=== PATIENT | male | born 1965 | race Caucasian/White ===

== ENCOUNTER 2024-02-26 17:29 | Emergency (ER) | payer OTHER, SELFPAY ==
--- NOTE | 2024-02-26 17:30 | ED_ITS ---
HPI - General Adult General Chief complaint: Ear Stated complaint: ear issues Time Seen by Provider: 02/26/24 17:40 Source: patient, RN notes reviewed and old records reviewed Mode of arrival: ambulatory Limitations: no limitations History of Present Illness HPI narrative: 58-year-old male presents to the [facility] with complaints left ear pain with preauricular swelling since last night. Patient reports that he had flu-like symptoms that started 1 week ago on Tuesday. They continued through Tuesday, is been taking rjaw-uso-suldcnd cold medication. Reports was symptoms have improved. Patient states that he blew his nose last night and started with some sharp pain in the left ear. Related Data Allergies Allergy/AdvReac Type Severity Reaction Status Date / Time No Known Allergies Allergy Verified 02/26/24 17:35 Review of Systems Review of Systems: All systems reviewed & are unremarkable except as noted in HPI and below Constitutional: Constitutional: Reports no additional constitutional complaints ENT: Reports as per HPI and Reports otalgia Cardiovascular: Cardiovascular: Reports no additional cardiovascular complain ts, Denies chest pain and Denies dyspnea Respiratory: Respiratory: Reports no additional respiratory complaints, Denies chest congestion, Denies cough and Denies dyspnea Musculoskeletal: Musculoskeletal: Reports no additional musculoskeletal complaints Integumentary/Breasts: Skin/Breast: Reports system reviewed and no additional complaints, except as docu PMFSH Comments At the time of my signature, I reviewed and agree with the nursing past medical, surgical, social, and family history. There is no relevant family history pertinent to the patient complaint. Exam Const: General: cooperative, healthy appearing, comfortable, no acute distress, well developed, alert and well nourished Nutritional Appearance: well nourished Orientation/consciousness: patient oriented x3 Limitations: no limitations HENMT: Head: normal to inspection Ears: external ears normal, EAC's normal, mastoids normal, periauricular adenopathy on the left and TM abnormal bulging on the left and erythematous on the left Face/Nose/Sinus: Normal external nose present, Normal nares present, Normal nasal mucous membranes and turbinates present and No nasal discharge present Face and sinus: normal facial exam, sinuses nontender and face symmetric Mouth: Yes Normal oral and palatal mucosa present, Yes lip normal, Yes tongue normal and Yes moist mucous membranes Throat: posterior oropharynx normal, tonsils normal, uvula midline and no uvular edema Eyes: General: appearance normal, both eyes and all related structures Alignment and Position: alignment normal Neck: Neck: normal visual inspection, full ROM, no lymphadenopathy and no meningeal signs Chest: Chest palpation & inspection: normal inspection of the chest Resp: Effort & Inspection: normal respiratory effort and able to speak in complete sentences Auscultation: clear to auscultation bilaterally, no crackles, no rales, no rhonchi and no wheezes Cardio: Rate: regular rate Skin: General skin exam: normal color and no rashes or lesions noted Neuro: General: patient oriented x3, gait normal, moves all extremities and no meningeal signs Cognition (Neuro): normal cognition Speech: normal speech Gait exam (Neuro): Normal gait present Extrem: General: normal to inspection, full ROM, capillary refill normal and normal gait Psych: Appearance: grossly normal and well kempt Mental Status: mental status grossly normal Speech and movement: Normal speech and movement present and Clear speech present Affect: normal affect Attitude: cooperative Course Course Level of Care: Express Care Visit Vital Signs Vital signs: Vital Signs Temperature 97.9 F 02/26/24 17:37 Pulse Rate 81 02/26/24 17:37 Respiratory Rate 16 02/26/24 17:37 Blood Pressure 173/86 H 02/26/24 17:37 Pulse Oximetry 98 02/26/24 17:37 Oxygen Delivery Room Air 02/26/24 17:37 Temperature 97.9 F 02/26/24 17:37 Pulse Rate 81 02/26/24 17:37 Respiratory Rate 16 02/26/24 17:37 Blood Pressure 173/86 H 02/26/24 17:37 Pulse Oximetry 98 02/26/24 17:37 Oxygen Delivery Room Air 02/26/24 17:37 Reviewed Medical Decision Making MDM Narrative Medical decision making narrative: Patient sitting comfortably in exam room. Nontoxic, vitals stable. Patient in no acute distress Patient presents for for left ear pain since yesterday. History of upper respiratory symptoms, improved a couple of days ago. Has been taken offn-pda-kbvaoys products. Patient appropriate for outpatient treatment for otitis media with an antibiotic and close follow-up. Discharge instructions reviewed with patient, as well as provided in writing per nursing staff. The instructions also include specific and strict return/GO TO THE ER as well as f/u information. All questions have been answered, and the patient deny any further questions with discharge and discharge plan. Some parts of this dictation were generated by voice recognition software and may contain typographical and/or grammatical inaccuracies. Differential Diagnosis Differential Diagnosis: URI, otitis media, serous otitis Medical Records Medical records reviewed: Yes I reviewed the external patient's medical records. Vital Signs Vital Signs: Vital Signs Temperature 97.9 F 02/26/24 17:37 Pulse Rate 81 02/26/24 17:37 Respiratory Rate 16 02/26/24 17:37 Blood Pressure 173/86 H 02/26/24 17:37 Pulse Oximetry 98 02/26/24 17:37 Oxygen Delivery Room Air 02/26/24 17:37 Temperature 97.9 F 02/26/24 17:37 Pulse Rate 81 02/26/24 17:37 Respiratory Rate 16 02/26/24 17:37 Blood Pressure 173/86 H 02/26/24 17:37 Pulse Oximetry 98 02/26/24 17:37 Oxygen Delivery Room Air 02/26/24 17:37 Reviewed Lab Data Lab results reviewed: Yes I reviewed the patient's lab results. Labs: Reviewed Critical Care Time Critical Care Time Critical Care Time: No Discharge Plan Discharge Clinical Impression: Acute infection of left ear Patient Disposition: Home, Self-Care Condition: Stable Instructions: Antibiotic Form, Ear Infection (GEN) Additional Instructions: Continue to take Motrin and Tylenol as needed for pain. Apply warm compresses to help with swelling and discomfort. Take antibiotic as prescribed for the ear infection Today your blood pressure was 173/86. It is extremely important that you follow-up with primary care provider within the next 2 weeks to have this rechecked. Untreated or undertreated blood pressure issues can lead to more serious health issues such as but not limited to heart attack, stroke, kidney failure, erectile dysfunction For new or worsening symptoms go directly to the emergency room Patient Language: Faroese Prescriptions: New amoxicillin 875 mg tablet 875 mg PO Q12H Qty: 20 0RF Follow-up/Referrals: UNKNOWN,DOCTOR [Non-Staff] - Stand Alone Forms: Work/School Release IP Time of Disposition: 17:47
[2024-02-26 17:37] VITALS: BP 173/86; PULSE 81; RESP 16; TEMP 36.6; O2SAT 98
--- OUTSIDE RECORDS SUMMARY | 2024-03-04 08:01 | XMS_ITS | Clinical Summary ---
Author Organization [facility] Address [address] [place] [address] Care Team Providers Care Fish Dressing Machine Feeder Name Role Phone Canelo Cuellar MD Primary Care Provi joe Source Comments [facility] [employer],non-owned Affiliates and Associated Physician Practices is amultiple site organization consisting of ambulatory clinics and hospital sitesin [place], [place], [place] and [place]. This disclosure is being madepursuant to the Care Everywhere program and may not contain all information available regarding this patient. Last updated 17.[facility] [employer] Allergies No known active allergies Medications Be aware that medications may not be up to date on this document. Always verify current medications with the patient. No known medications Social History Tobacco Use Types Packs/Day Years Used Date Smoking Tobacco: Never Assessed Sex and Gender Information Value Date Recorded Sex Assigned at Not on file Gender Identity Not on file Sexual Orientation Not on file Last Filed Vital Signs Vital Sign Reading Time Taken Comments Blood Pressure 142/90 11/28/2016 10:23 AM CDT Pulse 77 11/28/2016 10:23 AM CDT Temperature 37 ??C (98.6 ??F) 11/28/2016 10:23 AM CDT Respiratory Rate 12 11/16/2013 9:54 AM CDT Oxygen Saturation 97% 11/28/2016 10:23 AM CDT Inhaled Oxygen Concentration - - Weight 88 kg (194 lb) 11/28/2016 10:23 AM CDT Height 172.7 cm (5' 8 ) 11/28/2016 10:23 AM CDT Body Mass Index 29.5 11/28/2016 10:23 AM CDT Plan of Treatment Health Maintenance Due Date Last Done Comments ALFREDA (AGES 45-75) - COL ON CA SCREENING 1965 COLON MONITORING 1964 COLONOSCOPY - COLON CA SCREENING 1964 CT COLONOGRAPHY - COLON CA SCREENING 1964 Colorectal Cancer Screening 1964 FIT - COLON CA SCREENING 1964 FLEX SIG - COLON CA SCREENING 1964 LIPID TESTING 1964 HIV SCREENING 10/30/1979 HEPATITIS C SCREENING 10/25/1982 DTAP/TDAP/TD VACCINES (1 - Tdap) 10/30/1983 HEPATITIS B VACCINE (1 of 3 - 19+ 3-dose series) 10/30/1983 ZOSTER VACCINE (1 of 2) 2014 SCREENING FOR DIABETES 11/28/2016 DEPRESSION SCREENING 02/21/2023 COVID-19 VACCINE (1 - 2023-2 5 season) 2023 INFLUENZA VACCINE (#1) 2023 HIB VACCINE Aged Out No longer eligi ble based on patient's age to complete this topic HPV VACCINE Aged Out No longer eligi ble based on patient's age to complete this topic MENINGOCOCCAL VACCINE Aged Out No asya yulisa eligible based on patient's age to complete this topic PNEUMOCOCCAL VACCINE Aged Out No long er eligible based on patient's age to complete this topic Care Teams Fish Dressing Machine Feeder Relationship Specialty Start Date End Date Canelo Cuellar MD PCP - General Internal Medicine 11/28/16
--- OUTSIDE RECORDS SUMMARY | 2024-03-04 08:01 | XMS_ITS | Patient Health Summary ---
Author Organization [facility] Address [address] [place] [address] Care Team Providers Care Project Control Manager Name Role Phone Canelo Cuellar MD Primary Care Provi joe Note from [facility],non-owned Affiliates and Associated Physician Practices is amultiple site organization consisting of ambulatory clinics and hospital sitesin [place], [place], [place] and [place]. This disclosure is being madepursuant to the Care Everywhere program and may not contain all information available regarding this patient. Last updated 17.[facility] Allergies No known active allergies Medications Be [...] Mass Index 29.5 11/28/2016 10:23 AM CDT Procedures * PATHOLOGY/GENETICS HISTORICAL-ONBASE(Performed 11/02/2012) Results * PATHOLOGY/GENETICS HISTORICAL-ONBASE (11/02/2012) 11/02/2012 Narrative [facility] - 11/21/2012 9:39 AM CDT Historical Provider LAB - CHEMISTRY O RDERABLES [facility] [address] Care Teams Project Control Manager Relationship Specialty Start Date End Date Canelo Cuellar MD PCP - General Internal Medicine 11/28/16
--- OUTSIDE RECORDS SUMMARY | 2024-03-04 08:01 | XMS_ITS | Encounter Summary ---
Author Organization [facility] Address [address] [place] [address] Care Team Providers Care Police Captain Name Role Phone Canelo Cuellar MD Primary Care Provi joe Encounter Details Date Type Department Care Team (Late st Contact Info) Description 10/17/2012 Hospital Outpatient Visit Historic [facility] [address] [place] [phone] Prashant Bolaños MD [address] [place] [id number] Social History Tobacco Use Types Packs/Day Years Used Date Smoking Tobacco: Never Assessed Sex and Gender Information Value Date Recorded Sex Assigned at Not on file Gender Identity Not on file Sexual Orientation Not on file documented as of this encounter Plan of Treatment Not on file documented as of this encounter Visit Diagnoses Not on filedocumented in this encounter Care Teams Police Captain Relationship Specialty Start Date End Date Canelo Cuellar MD PCP - General Internal Medicine 11/28/16 documented as of this encounter
--- OUTSIDE RECORDS SUMMARY | 2024-03-04 08:01 | XMS_ITS | Encounter Summary ---
Author Organization [facility] Address [address] [place] [address] Care Team Providers Care Board Setter Name Role Phone Canelo Cuellar MD Primary Care Provi joe Encounter Details Date Type Department Care Team (Late st Contact Info) Description 11/02/2012 Anesthesia Historic Visit [facility] [address] [place] [phone] Social History Tobacco Use Types Packs/Day Years Used Date Smoking Tobacco: Never Assessed Sex and Gender Information Value Date Recorded Sex Assigned at Not on file Gender Identity Not on file Sexual Orientation Not on file documented as of this encounter Plan of Treatment Not on file documented as of this encounter Visit Diagnoses Not on filedocumented in this encounter Care Teams Board Setter Relationship Specialty Start Date End Date Canelo Cuellar MD PCP - General Internal Medicine 11/28/16 documented as of this encounter
--- OUTSIDE RECORDS SUMMARY | 2024-03-04 08:01 | XMS_ITS | Referral Summary ---
Author Organization [facility] Address [address] [place] [address] Care Team Providers Care Terrazzo Supervisor Name Role Phone Canelo Cuellar MD Primary Care Provi joe Source Comments [facility],non-owned Affiliates and Associated Physician Practices is amultiple site organization consisting of ambulatory clinics and hospital sitesin [place], [place] and [place]. This disclosure is being madepursuant to the Care Everywhere program and may not contain all information available regarding this patient. Last updated 17.[facility] [employer] Allergies No known active allergies Medications Be [...] 11/28/2016 10:23 AM CDT Plan of Treatment Not on file Care Teams Terrazzo Supervisor Relationship Specialty Start Date End Date Canelo Cuellar MD PCP - General Internal Medicine 11/28/16
--- OUTSIDE RECORDS SUMMARY | 2024-03-04 08:01 | XMS_ITS | Encounter Summary ---
Author Organization [facility] Address [address] [place] [address] Care Team Providers Care Family Consultant Name Role Phone Canelo Cuellar MD Primary Care Provi joe Reason for Visit * Reason Onset Date Comments Follow-up 11/30/2016 Encounter Details Date Type Department Care Team (Late st Contact Info) Description 11/30/2016 Telephone [facility] [address] [phone] [facility] Follow-up Social History Tobacco Use Types Packs/Day Years Used Date Smoking Tobacco: Never Assessed Sex and Gender Information Value Date Recorded Sex Assigned at Not on file Gender Identity Not on file Sexual Orientation Not on file documented as of this encounter Plan of Treatment Not on file documented as of this encounter Visit Diagnoses Not on filedocumented in this encounter Care Teams Family Consultant Relationship Specialty Start Date End Date Canelo Cuellar MD PCP - General Internal Medicine 11/28/16 documented as of this encounter
--- OUTSIDE RECORDS SUMMARY | 2024-03-04 08:01 | XMS_ITS | Encounter Summary ---
Author Organization [facility] Address [address] [place] [address] Care Team Providers Care Wheel And Caster Repairer Name Role Phone Canelo Cuellar MD Primary Care Provi joe Reason for Visit * Reason Comments Insect bite tick bite occured wh ile in [place]; located on left leg Fever low grade with body aches Encounter Details Date Type Department Care Team (Late st Contact Info) Description 11/28/2016 10:20 AM CDT Office Visit [facility] AT [address] [id number] Provider, Rebecca Exp [facility] Insect bite of left leg, initial encounter (Primary Dx); Tick bite, initial encounter Social History Tobacco Use Types Packs/Day Years Used Date Smoking Tobacco: Never Assessed Sex and Gender Information Value Date Recorded Sex Assigned at Not on file Gender Identity Not on file Sexual Orientation Not on file documented as of this encounter Last Filed Vital Signs Vital Sign Reading Time Taken Comments Blood Pressure 142/90 11/28/2016 10:23 AM CDT Pulse 77 11/28/2016 10:23 AM CDT Temperature 37 ??C (98.6 ??F) 11/28/2016 10:23 AM CDT Respiratory Rate - - Oxygen Saturation 97% 11/28/2016 10:23 AM CDT Inhaled Oxygen Concentration - - Weight 88 kg (194 lb) 11/28/2016 10:23 AM CDT Height 172.7 cm (5' 8 ) 11/28/2016 10:23 AM CDT Body Mass Index 29.5 11/28/2016 10:23 AM CDT documented in this encounter Patient Instructions * Patient Instructions* Kristen Onofre, MACHINE [employer] - 11/28/2016 10:41 AM CDT Keep area clean and dry If worsening of symptoms of fever > 101.0, chills or lethargy go to ED Follow up with PCP Dr Cuellar in 2-3 days for reevaluation Tick Bite WHAT YOU NEED TO KNOW: Most tick bites are not dangerous, but ticks can pass disease or infection when they bite. Ticks need to be removed quickly. You may have redness, pain, itching, and swelling near the bite. Blisters may also develop. DISCHARGE INSTRUCTIONS: Return to the emergency department if: ?? You have trouble walking or moving your legs. ?? You have joint pain, muscle pain, or muscle weakness within 1 month of a tick bite. ?? You have a fever, chills, headache, or rash. Contact your healthcare provider if: ?? You cannot remove the tick. ?? The tick's head is stuck in your skin. ?? You have questions or concerns about your condition or care. Medicines: ?? Medicines help decrease pain, redness, itching, and swelling. You may also need medicine to prevent or fight a bacterial infection. These medicines may be given as a cream, lotion, or pill. ?? Take your medicine as directed. Contact your healthcare provider if you think your medicine is not helping or if you have side effects. Tell him of her if you are allergic to any medicine. Keep a list of the medicines, vitamins, and herbs you take. Include the amounts, and when and why you take them. Bring the list or the pill bottles to follow-up visits. Carry your medicine list with you in case of an emergency. How to remove a tick: Remove the tick as soon as possible to help prevent disease or infection. Youare less likely to get sick from a tick bite if you remove the tick within 24 hours. Do not use petroleum jelly, nail mongolian, rubbing alcohol, or heat. These do not work and may be dangerous. Do the f ollowing to remove a tick: ?? First, try a soapy cotton ball. Soak a cotton ball in liquid soap. Cover the tick with the cotton ball for 30 seconds. The tick may come off with the cotton ball when you pull it away. ?? Use tweezers if the soapy cotton ball does not work. Grasp the tick as close to your skin as possible. Pull the tick straight up and out. Do not touch the tick with your bare hands. ?? Do not twist or jerk the tick suddenly, because this may break off the tick's head or mouth parts. Do not leave any part of the tick in your skin. ?? Do not crush or squeeze the tick since its body may be infected with germs. Flush the tick down the toilet. ?? After the tick is removed, clean the area of the bite with rubbing alcohol. Then wash your handswith soap and water. Apply ice on your bite for 15 to 20 minutes every hour or as directed. Use an ice pack, or put crushed ice in a plastic bag. Cover it with a towel before you apply it to your skin. Ice helps prevent tissue damage and decreases swelling and pain. Prevent a tick bite: Ticks live in areas covered by brush and grass. They may even be found in yourlawn if you live in certain areas. Outdoor pets can carry ticks inside the house. Ticks can grab onto you or your clothes when you walk by grass or brush. If you go into areas that contain many trees, tall grasses, and underbrush, do the following: ?? Wear light colored pants and a long-sleeved shirt. Tuck your pants into your socks or boots. Tuck in your shirt. Wear sleeves that fit close to the skin at your wrists and neck. This will help prevent ticks from crawling through gaps in your clothing and onto your skin. Wear a hat in areas with trees. ?? Apply insect repellant on your skin. The insect repellant should contain DEET. Do not put insectrepellant on skin that is cut, scratched, or irritated. Always use soap and water to wash the insect repellant off as soon as possible once you are indoors. Do not apply insect repellant on your child's face or hands. ?? [place] insect repellant onto your clothes. Use permethrin spray. This spray kills ticks that crawl on your clothing. Be sure to spray the tops of your boots, bottom of pant legs, and sleeve cuffs. As soon as possible, wash and dry clothing in hot water and high heat. ?? Check your clothing, hair, and skin for ticks. Shower within 2 hours of coming indoors. Carefully check the hairline, armpits, neck, and waist. Check your pets and children for ticks. Remove ticksfrom pets the same way as you remove them from people. ?? Decrease the risk for ticks in your yard. Ticks like to live in shady, moist areas. Mow your lawn regularly to keep the grass short. Trim the grass around birdbaths and fences. Cut branches that are overgrown and take them out of the yard. Clear out leaf piles. Stack firewood in a dry, ling area. Follow up with your healthcare provider as directed: Write down your questions so you remember to ask them during your visits. ?? 2016 [employer]. Information is for End User's use only and may not be sold, redistributed or otherwise used for commercial purposes. All illustrations and images included in CareNotes?? are the copyrighted property of [employer] or [employer]. The above information is an paraprofessional aide only. It is not intended as medical advice for individual conditions or treatments. Talk to your doctor, nurse or pharmacist before following any medical regimen to see if it is safe and effective for you. documented in this encounter Progress Notes * Kristen Onofre APRN-CNP - 11/28/2016 10:33 AM CDT [facility] Chief Complaint Patient presents with ??? Insect bite tick bite occured while in [place]; located on left leg ??? Fever low grade with body aches SUBJECTIVE: General The history is provided by the patient. This is a new problem. The current episode started more than 2 days ago. The problem occurs constantly. Associated symptoms include headaches. Pertinent negatives include no shortness of breath. Treatments tried: cleaned area with shampoo. The treatment provided no relief. 51 y/o male presents with tick bite on left lateral aspect of leg noticed on Tuesday and removed it on Tue with low grade fever, body aches, chills. Area ooze once but nothing since then. Patient was in [place]. No past medical history on file. No current outpatient prescriptions on file prior to visit. No current facility-administered medications on file prior to visit. No past surgical history on file. Social History Social History ??? Marital status: Spouse name: N/A ??? Number of children: N/A ??? Years of education: N/A Occupational History ??? Not on file. Social History Main Topics ??? Smoking status: Not on file ??? Smokeless tobacco: Not on file ??? Alcohol use Not on file ??? Drug use: Not on file ??? Sexual activity: Not on file Other Topics Concern ??? Not on file Social History Narrative No family history on file. Current Outpatient Prescriptions Medication Sig Dispense Refill ??? doxycycline hyclate (VIBRAMYCIN) 100 MG capsule Take 1 Cap by mouth 2 times daily for 10 days 20 Cap 0 No current facility-administered medications for this visit. No Known Allergies REVIEW OF SYSTEMS: Review of Systems Constitutional: Positive for chills and fever. Low grade, aches HENT: Negative for congestion, ear pain, nosebleeds and sore throat. Respiratory: Negative for cough and shortness of breath. Gastrointestinal: Positive for nausea. Negative for diarrhea and vomiting. Skin: Negative for itching and rash. Redness Neurological: Positive for headaches. Negative for dizziness. OBJECTIVE: General appearance: alert, well appearing, and in no distress. BP 142/90 (BP SITE: LEFT ARM, BP POSITION: SITTING, BP CUFF SIZE: Adult) Pulse 77 Temp 98.6 ??F (Oral) Ht 1.727 m (5' 8 ) Wt 88 kg (194 lb) SpO2 97% BMI 29.5 kg/m2 Physical Exam Constitutional: He is oriented to person, place, and time and well-developed, well-nourished, and in no distress. HENT: Head: Normocephalic and atraumatic. Cardiovascular: Normal rate and regular rhythm. Pulmonary/Chest: Effort normal and breath sounds normal. Neurological: He is alert and oriented to person, place, and time. Skin: There is erythema. Left lower lateral aspect of leg small pea size erythema non draining tender area present with scabbed area Vitals reviewed. ASSESSMENT: No results found for this visit on 11/28/16. Encounter Diagnosis Name Primary? Tick bite, initial encounter Yes PLAN: Keep area clean and dry If worsening of symptoms of fever > 101.0, chills or lethargy go to ED Follow up with PCP Dr Cuellar in 2-3 days for reevaluation documented in this encounter Plan of Treatment Not on file documented as of this encounter Visit Diagnoses Diagnosis Insect bite of left leg, initial encounter- Primary Tick bite, initial encounter documented in this encounter Care Teams Wheel And Caster Repairer Relationship Specialty Start Date End Date Canelo Cuellar MD PCP - General Internal Medicine 11/28/16 documented as of this encounter
--- OUTSIDE RECORDS SUMMARY | 2024-03-04 08:02 | XMS_ITS | Encounter Summary ---
Author Organization [facility] Address [address] [facility] [address] [place] [id number] Care Team Providers Care Microsoft Crm Developer Name Role Phone Mike Tan MD Primary Care Provider [phone] Reason for Visit * Reason Comments Covid Headache, fatigue, b maryam aches, cough, sx onset 01/03/2021, pt took at home test and was +, no exp, not vaccinated Encounter Details Date Type Department Care Team ([facility] Contact Info) Description 01/04/2021 11:45 AM DRIER AND PULVERIZER TENDER Office Visit [facility] [address] [place] [id number] Madison Huntley, DENISE [address] [place] [address] Suspected COVID-19 virus infection (Primary Dx); Close exposure to COVID-19 virus Social History Tobacco Use Types Packs/Day Years Used Date Smoking Tobacco: Former Smokeless Tobacco: Never Alcohol Use Standard Drinks/Week Comments Yes 0 (1 standard drink = 0.6 oz pur e alcohol) PHQ-2 Answer Date Recorded PHQ-2 Total Score (If total score is 3 or more points, staff should administer the PHQ-9) 0 07/10/2019 Sex and Gender Information Value Date Recorded Sex Assigned at Not on file Legal Sex Male 1:08 AM DRIER AND PULVERIZER TENDER Gender Identity Not on file Sexual Orientation Not on file documented as of this encounter Last Filed Vital Signs Vital Sign Reading Time Taken Comments Blood Pressure 154/90 01/04/2021 11:40 AM DRIER AND PULVERIZER TENDER Pulse 90 01/04/2021 11:40 AM DRIER AND PULVERIZER TENDER Temperature 37 ??C (98.6 ??F) 01/04/2021 11:40 AM DRIER AND PULVERIZER TENDER Respiratory Rate 20 01/04/2021 11:40 AM DRIER AND PULVERIZER TENDER Oxygen Saturation 96% 01/04/2021 11:40 AM DRIER AND PULVERIZER TENDER Inhaled Oxygen Concentration - - Weight 90.3 kg (199 lb) 01/04/2021 11:40 AM DRIER AND PULVERIZER TENDER Height 172.7 cm (5' 8 ) 01/04/2021 11:40 AM DRIER AND PULVERIZER TENDER Body Mass Index 30.26 01/04/2021 11:40 AM DRIER AND PULVERIZER TENDER documented in this encounter Patient Instructions * Patient Instructions* Madison Huntley, WATCH DIAL STONER - 01/04/2021 11:45 AM DRIER AND PULVERIZER TENDER The CDC and local health departments recommend that you isolate yourself to prevent any potential spread of the virus until you have the results of your test. If you develop worsening symptoms of respiratory distress, call 911 or go to the nearest emergency room. What does self-isolation mean? - Remain at home or in a comparable setting - No public activities - You should not perform any public travel Do MY close contacts need to be isolated? - YES they should self-isolate until you have the results of your test. When will my results be available? - There is not a rapid test available at this time. It may take several days to get the results of this test. If you have MyChart, the results will be available to you at the same time as we receive them. Regardless, we will call every patient with positive or negative results. The [facility] will be reaching out to all patients who have a positive test for further discussion and monitoring. The CDC and [facility] have much more information available online. The websites are: - cdc.gov - b[facility].org Additional resources around self-isolation and how to prevent spread are at: cdc.gov/coronavirus/2019-ncov/about/index.html If symptoms are severe, rest at home for the first 2 to 3 days. When you resume activity, don't letyourself get too tired. Don't smoke. If you need help stopping, talk with your healthcare provider. Avoid being exposed to cigarette smoke (yours or others???). You may use acetaminophen to control pain and fever, unless another medicine was prescribed. If youhave chronic liver disease, have ever had a stomach ulcer or gastrointestinal bleeding talk with your healthcare provider before using these medicines. Aspirin should never be given to anyone under 18 years of age who is ill with a viral infection or fever. It may cause severe liver or brain damage. Your appetite may be poor, so a light diet is fine. Stay well hydrated by drinking 6 to 8 glasses of fluids per day (water, soft drinks, juices, tea, or soup). Extra fluids will help loosen secretions in the nose and lungs. Bpou-xhv-qskfnmy cold medicines will not shorten the length of time you???re sick, but they may be helpful for the following symptoms: cough, sore throat, and nasal and sinus congestion. If you take prescription medicines, ask your healthcare provider or pharmacist which srwn-laf-oqcyucw medicines are safe to use. (Note: Don't use decongestants if you have high blood pressure.) If you develop worsening of shortness of breath, high fevers or other concerning symptoms, go to the ER. Instructions following testing for COVID-19: Today you received test for SARS-COV2 (COVID-19). Please follow the instructions below regarding quarantine and return to work/daycare/school based on your results, symptoms and exposures. You will be notified in 24-48 hours of your COVID-19 swab results. If you are NEGATIVE, AND: 1. NO symptoms and NO known/possible exposure: NO need to isolate. 2. NO symptoms and YES known/possible exposure: quarantine for 14 days after last potential exposure. A negative test of a specific day cannot be used to release from quarantine since the patience could become positive during the 14- day period. 3. YES symptoms and NO known/possible exposure: quarantine until without fever for 24 hours AND symptoms improve. 4. YES symptoms and YES known/possible exposure: you must quarantine for 14 days from last known exposure date. A negative test of a specific day cannot be used to release from quarantine since the patient could become positive during the 14 day period. 5. YES symptoms and YES known/possible exposure and HAVE BEEN VACCINATED: you ONLY QUARANTINE untilyou are fever free AND symptoms improve. 6. NO symptoms and YES known/possible exposure and HAVE BEEN VACCINATED: NO RECOMMENDATION FOR QUARANTINE. If you are POSITIVE and NOT VACCINATED: You should isolate for 10 days from onset of symptoms, NOT FROM DATE OF POSITIVE TEST. You must be without fever for 24 hours AND symptoms improving AND released by the local health department. All household contacts must quarantine for 14 days from last potential exposure to positive patient. If household contacts cannot fully isolate, then quarantine for household contacts extends for 14 days beyond the 10 days from start of symptoms (may be up to 24 days of quarantine). ??? COVID-19 is a highly communicable disease (very contagious) that is spread through droplets viacough, sneeze, speech at close contact. ??? You will need to continue to wear a mask per CDC guidelines. ??? If at any time you feel significantly short of breath or chest pain/tightness, or change in mental status please go to the ER. If you are POSITIVE and VACCINATED: ??? Although the risk that fully vaccinated people could become infected with COVID-19 is low, any fully vaccinated person who experiences symptoms consistent with COVID-19 should isolate themselves from others, be clinically evaluated for COVID-19, and tested for SARS-CoV-2 if indicated. ??? The fully vaccinated people that test positive for COVID should quarantine for 10-days from theonset of symptoms. ??? The symptomatic fully vaccinated person should inform their healthcare provider of their vaccination status at the time of presentation to care. COVID-19 vaccines are effective at protecting you from getting sick. Based on what we know about COVID-19 vaccines, people who have been fully vaccinated can do things that they had stopped doing because of the pandemic. These recommendations can help you make decisions about daily activities after you are fully vaccinated. They are not intended for healthcare settings. Have You Been Fully Vaccinated? In general, people are considered fully vaccinated: ? 2 weeks after their second dose in a 2-dose series, such as the Pfizer or Moderna vaccines, or ? ? 2 weeks after a single-dose vaccine, such as Patrick & Patrick? s Afshan vaccine ??? If you don???t meet these requirements, regardless of your age, you are NOT fully vaccinated. Keep taking all precautions until you are fully vaccinated. If you have a condition or are taking medications that weaken your immune system, you may NOT be fully protected even if you are fully vaccinated. Talk to your healthcare provider. Even after vaccination, you may need to continue taking all precautions. What You Can Do? If you???ve been fully vaccinated: ??? You can resume activities that you did prior to the pandemic. ??? You can resume activities without wearing a mask or staying 6 feet apart, except where requiredby federal, state, local, [place], or territorial laws, rules, and regulations, including local business and workplace guidance. ??? If you travel in the [place], you do not need to get tested before or after travel or self-quarantine after travel. ??? You need to pay close attention to the situation at your international destination before traveling outside the [place]. ??? You do NOT need to get tested before leaving the [place] unless your destination requiresit. ??? You still need to show a negative test result or documentation of recovery from COVID-19 beforeboarding an international flight to the [facility]. ??? You should still get tested 3-5 days after international travel. ??? You do NOT need to self-quarantine after arriving in the [place]. ??? If you???ve been around someone who has COVID-19, you do not need to stay away from others or get tested unless you have symptoms. ??? However, if you live or work in a correctional or residential facility or a homeless senior care and are around someone who has COVID-19, you should still get tested, even if you don???t have symptoms. What You Should Keep Doing? For now, if you???ve been fully vaccinated: ??? You will still need to follow guidance at your workplace and local businesses. ??? If you travel, you should still take steps to protect yourself and others. ??? Masks are required on planes, buses, trains, and other forms of public transportation travelinginto, within, or out of the [place] and in [place] transportation hubs such as airports and stations. Travelers are not required to wear a mask in outdoor areas of a conveyance (like on a ferry orthe top deck of a bus). CDC recommends that travelers who are not fully vaccinated continue to weara mask and maintain physical distance when traveling. ??? Fully vaccinated international travelers arriving in the [place] are still required to get tested 3 days before travel by air into the [place] (or show documentation of recovery from COVID-19 in the past 3 months) and should still get tested 3-5 days after their trip. ??? You should still watch out for symptoms of COVID-19, especially if you???ve been around someonewho is sick. If you have symptoms of COVID-19, you should get tested and stay home and away from others. ??? People who have a condition or are taking medications that weaken the immune system, should talk to their healthcare provider to discuss their activities. They may need to keep taking all precautions to prevent COVID-19. What We Know? COVID-19 vaccines are effective at preventing COVID-19 disease, especially severe illness and . ??? COVID-19 vaccines reduce the risk of people spreading COVID-19. What We???re Still Learning ??? How effective the vaccines are against variants of the virus that causes COVID-19. Early data show the vaccines may work against some variants but could be less effective against others. ??? How well the vaccines protect people with weakened immune systems, including people who take immunosuppressive medications. ??? How long COVID-19 vaccines can protect people. ??? As we know more, CDC will continue to update our recommendations for both vaccinated and unvaccinated people. All information from CDC web site R AND PULVERIZER TENDER documented in this encounter Progress Notes * Madison Huntley NP - 01/04/2021 11:45 AM CST Images from the original note were not included. Patient ID: Brad Escobar is a 55 y.o. male followed by Mike Tan MD Patient was wearing the following PPE: mask. MA was wearing the following PPE: mask, gown, gloves and face shield. Provider was wearing the following PPE: mask, gown, gloves and face shield. Chief Complaint Patient presents with ??? Covid Headache, fatigue, body aches, cough, sx onset 01/03/2021, pt took at home test and was +, no exp, not vaccinated URI This is a new problem. The current episode started yesterday. The problem has been gradually worsening. There has been no fever. Associated symptoms include congestion, coughing, headaches, a pluggedear sensation, rhinorrhea, shortness of breath, sneezing and a sore throat. Pertinent negatives include no abdominal pain, chest pain, diarrhea, dysuria, ear pain, nausea, neck pain, rash, vomiting or wheezing. Treatments tried: dayquil. The treatment provided mild relief. Patient states that he had a positive home covid test today. Patient presents to clinic for assessment of Chief Complaint Patient presents with ??? Covid Headache, fatigue, body aches, cough, sx onset 01/03/2021, pt took at home test and was +, no exp, not vaccinated . Patient reports DRY COUGH, SHORTNESS OF BREATH, NASAL CONGESTION, NASAL DRAINAGE, HEADACHE, BODY ACHES and FATIGUE Patient reports this has been going on for 2 days. Patient with sick or suspected COVID-19 contacts: Yes Patient has following risks for COVID-19: none Patient has not been fully vaccinated for Covid-19. Patient works [employer] Patient lives at home with Review of Systems Constitutional: Positive for fatigue. Negative for appetite change, chills and fever. HENT: Positive for congestion, postnasal drip, rhinorrhea, sneezing and sore throat. Negative for ear pain and trouble swallowing. Eyes: Negative for pain, discharge, redness and itching. Respiratory: Positive for cough and shortness of breath. Negative for chest tightness and wheezing. Cardiovascular: Negative for chest pain and leg swelling. Gastrointestinal: Negative for abdominal pain, constipation, diarrhea, nausea and vomiting. Genitourinary: Negative for difficulty urinating, dysuria, frequency and urgency. Musculoskeletal: Positive for myalgias. Negative for back pain and neck pain. Skin: Negative for rash and wound. Allergic/Immunologic: Negative for environmental allergies and food allergies. Neurological: Positive for headaches. Negative for dizziness and weakness. No current outpatient medications on file. No current facility-administered medications for this visit. Past Medical History: Diagnosis Date ??? No pertinent past medical history There is no immunization history for the selected administration types on file for this patient. Social History Tobacco Use Smoking Status Former Smoker Smokeless Tobacco Never Used Vitals: 01/04/21 1140 BP: 154/90 BP Location: Right arm Patient Position: Sitting Pulse: 90 Resp: 20 Temp: 37 ??C (98.6 ??F) TempSrc: Oral SpO2: 96% Weight: 90.3 kg (199 lb) Height: 172.7 cm (5' 8 ) Physical Exam Vitals and nursing note reviewed. Constitutional: Appearance: He is well-developed. HENT: Head: Normocephalic and atraumatic. Right Ear: Tympanic membrane and external ear normal. Left Ear: Tympanic membrane and external ear normal. Nose: Congestion present. Mouth/Throat: Lips: [place]. Mouth: Mucous membranes are moist. Pharynx: Oropharynx is clear. Eyes: General: Lids are normal. Conjunctiva/sclera: Conjunctivae normal. Pupils: Pupils are equal, round, and reactive to light. Cardiovascular: Rate and Rhythm: Normal rate and regular rhythm. Pulmonary: Effort: Pulmonary effort is normal. Breath sounds: Normal breath sounds. No wheezing. Abdominal: General: Bowel sounds are normal. Palpations: Abdomen is soft. Musculoskeletal: General: Normal range of motion. Cervical back: Normal range of motion and neck supple. Skin: General: Skin is warm and dry. Capillary Refill: Capillary refill takes less than 2 seconds. Neurological: Mental Status: He is alert and oriented to person, place, and time. Psychiatric: Behavior: Behavior normal. Assessment/Plan Diagnoses and all orders for this visit: Suspected COVID-19 virus infection (Primary) - COVID-19 POC Close exposure to COVID-19 virus Results for orders placed or performed in visit on 01/04/21 COVID-19 POC Result Value Ref Range COVID-19 Ag POC (BD Veritor) Presumptive Negative Presumptive Negative, Invalid Discussed COVID testing reasoning Reviewed isolation/quarantine protocols Discussed symptomatic relief of symptoms Discussed need to return to ER for further evaluation including worsening fevers, shortness of breath, of other concerning symptoms Advised to rest and stay adequately hydrated Advised to stay out of work and excuse given explaining when patient can return to work Orders Placed This Encounter Procedures ??? COVID-19 POC Order Specific Question: Is the Patient experiencing symptoms consistent with COVID? Answer: Yes Order Specific Question: Date of Symptom Onset Answer: 01/03/2021 Order Specific Question: Is the patient hospitalized? Answer: No Order Specific Question: Is the patient admitted to an ICU? Answer: No Order Specific Question: Is this the first COVID-19 test for this patient? Answer: No Order Specific Question: Does the patient currently work in a healthcare facility with direct patient contact? Answer: No Order Specific Question: Is the patient a resident of a congregate care or living setting? Answer: No Madison Huntley NP Cosigned by Mike Tan MD at 01/07/2021 8:04 AM DRIER AND PULVERIZER TENDER R AND PULVERIZER TENDER R AND PULVERIZER TENDER documented in this encounter Plan of Treatment Not on file documented as of this encounter Procedures Procedure Name Priority Date/Time Associated Diagnosis Comments COVID-19 POC Routine 01/04/2021 11:58 AM DRIER AND PULVERIZER TENDER Suspected COVID-19 virus infection documented in this encounter Results * COVID-19 POC (01/04/2021 11:58 AM DRIER AND PULVERIZER TENDER) COVID-19 Ag POC (BD Veritor) Presumptive Negative Presumptive Negative, Invalid [facility] Nasal 01/04/2021 11:5 8 AM DRIER AND PULVERIZER TENDER us Madison Huntley WATCH DIAL STONER POINT OF CARE TEST ORDERABLES Final Result [facility] [address] [place] [place] [address] documented in this encounter Visit Diagnoses Diagnosis Suspected COVID-19 virus infection- Primary Close exposure to COVID-19 virus documented in this encounter Additional Health Concerns Infection Onset Date Last Indicated Resolved Time COVID: Suspected 01/04/2021 01/04/2021 01/04/2021 11:59 AM DRIER AND PULVERIZER TENDER documented as of this encounter Care Teams Microsoft Crm Developer Relationship Specialty Start Date End Date Mike Tan MD [address] [place] [address] PCP - General Family Medicine 07/10/19 documented as of this encounter
--- OUTSIDE RECORDS SUMMARY | 2024-03-04 08:02 | XMS_ITS | Encounter Summary ---
Author Organization [facility] Healthcare Address [address] [place] [id number] Care Team Providers Care Energy Trader Name Role Phone Canelo Cuellar MD Primary Care Provi joe Encounter Details Date Type Department Care Team (Late st Contact Info) Description 12/06/2008 12:01 AM CDT - 12/06/2008 11:59 PM CDT Hospital Encounter [facility] Benign neoplasm of colon; Diverticulosis of colon; Abdominal pain, left lower quadrant; Internal hemorrhoids Social History Tobacco Use Types Packs/Day Years Used Date Smoking Tobacco: Never Assessed Sex and Gender Information Value Date Recorded Sex Assigned at Not on file Legal Sex Male 1:08 AM GEOLOGY INSTRUCTOR Gender Identity Not on file Sexual Orientation Not on file documented as of this encounter Plan of Treatment Not on file documented as of this encounter Visit Diagnoses Diagnosis Benign neoplasm of colon Diverticulosis of colon Diverticulosis of colon (without mention of hemorrhage) Abdominal pain, left lower quadrant Internal hemorrhoids Internal hemorrhoids without mention of complication documented in this encounter Care Teams Energy Trader Relationship Specialty Start Date End Date Canelo Cuellar MD PCP - General 11/18/08 01/23/09 documented as of this encounter
--- OUTSIDE RECORDS SUMMARY | 2024-03-04 08:02 | XMS_ITS | Encounter Summary ---
Author Organization [facility] Address [address] [facility] [address] [facility] [address] [place] [id number] Care Team Providers Care It Desktop Support Technician Name Role Phone Mike Tan MD Primary Care Provider [phone] Reason for Visit * Reason Comments New Patient pt is here to re-est ablish care Encounter Details Date Type Department Care Team ([facility] st Contact Info) Description 07/10/2019 9:00 AM CDT Office Visit [facility] [address] [phone] Walter Geiger Jr., MEDICAL OFFICE RECEPTIONIST [address] [place] [address] Erectile dysfunction, unspecified erectile dysfunction type (Primary Dx); Family history of cardiovascular disease; Screening for malignant neoplasm of colon; Annual physical exam; Need for vaccination Social History Tobacco Use Types Packs/Day Years [...] on file 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 Gender Identity Not on file Sexual Orientation Not on file documented as of this encounter Last Filed Vital Signs Vital Sign Reading Time Taken Comments Blood Pressure 136/88 07/10/2019 8:58 AM CDT Pulse 74 07/10/2019 8:58 AM CDT Temperature 36.8 ??C (98.3 ??F) 07/10/2019 8:58 AM CD T Respiratory Rate 16 07/10/2019 8:58 AM CDT Oxygen Saturation 96% 07/10/2019 8:58 AM CDT Inhaled Oxygen Concentration - - Weight 89.4 kg (197 lb) 07/10/2019 8:58 AM CDT Height 172.7 cm (5' 8 ) 07/10/2019 8:58 AM CDT Body Mass Index 29.95 07/10/2019 8:58 AM CDT documented in this encounter Patient Instructions * Patient Instructions* Walter Geiger NP - 07/10/2019 9:00 AM CDT Please follow up as directed during visit today. Try your best to follow the treatment plan and guidance for your diagnosis discussed today. Make sure you have all orders before leaving the office today. If any questions or concerns should present from or after your visit please call our office or follow up with your Primary Care Provider. documented in this encounter Ordered Prescriptions Prescription Sig Dispense Quantity Refills Last Filled Start Date End Date sildenafiL (VIAGRA) 50 mg tabletIndications: Erectile dysfunction, unspecified erectile dysfunction type Take 1 tablet (50 mg total) by mouth daily as needed for erectile dysfunction 4 tablet 2 07/10/2019 1 documented in this encounter Progress Notes * Walter Geiger NP - 07/10/2019 9:00 AM CDT Images from the original note were not included. Chief Complaint. Chief Complaint Patient presents with ??? New Patient pt is here to re-establish care HPI. Patient is a 53 y.o. male 53 y.o. male presents for new patient evaluation. He states he does have a past history of erectiledysfunction. He has used Viagra in the past and this has worked well for him. He would like to havethis reissued. He states he has not had any it chest pain or cardiac issues in the past. He does not use nitrates. He reports he is behind on his colonoscopy schedule. He did have 1 completed over 10years ago for polyps and has not followed up since. He is behind on his tetanus vaccination but does not wish to have this updated this morning. He does report a family history of cardiovascular disease and is concerned about this. Feels well overall. Does not report any new allergies. No recent hos pitalizations or ER admission. History reviewed. No pertinent past medical history. Past Surgical History: Procedure Laterality Date ??? CYST REMOVAL Right Current Outpatient Medications Medication Sig Dispense Refill ??? sildenafiL (VIAGRA) 50 mg tablet Take 1 tablet (50 mg total) by mouth daily as needed for erectile dysfunction 4 tablet 2 No current facility-administered medications for this visit. No Known Allergies Social History Tobacco Use ??? Smoking status: Former Smoker ??? Smokeless tobacco: Never Used Substance Use Topics ??? Alcohol use: Yes Family History Problem Relation Age of Onset ??? Other (Other) Mother ??? Heart disease Father Review of Systems: Review of Systems Constitutional: Negative for chills, fatigue and fever. HENT: Negative for hearing loss and trouble swallowing. Eyes: Negative for pain and visual disturbance. Respiratory: Negative for chest tightness and shortness of breath. Cardiovascular: Negative for chest pain and leg swelling. Gastrointestinal: Negative for abdominal pain, constipation, diarrhea, nausea and vomiting. Endocrine: Negative for cold intolerance and heat intolerance. Genitourinary: Negative for difficulty urinating and dysuria. Poor erection quality Musculoskeletal: Negative for arthralgias and myalgias. Skin: Negative for color change and rash. Allergic/Immunologic: Negative. Neurological: Negative for dizziness and weakness. Hematological: Negative for adenopathy. Psychiatric/Behavioral: Negative for behavioral problems. BP 136/88 (BP Location: Left arm, Patient Position: Sitting) Pulse 74 Temp 36.8 ??C (98.3 ??F) (Oral) Resp 16 Ht 172.7 cm (5' 8 ) Wt 89.4 kg (197 lb) SpO2 96% BMI 29.95 kg/m?? Body mass index is 29.95 kg/m??. Physical Exam: Physical Exam Vitals signs reviewed. Constitutional: General: He is not in acute distress. Appearance: Normal appearance. He is not ill-appearing. HENT: Right Ear: Hearing, tympanic membrane, ear canal and external ear normal. Left Ear: Hearing, tympanic membrane, ear canal and external ear normal. Nose: No nasal tenderness, mucosal edema, congestion or rhinorrhea. Right Turbinates: Not enlarged, swollen or pale. Left Turbinates: Not enlarged, swollen or pale. Eyes: General: Lids are normal. Right eye: No discharge. Left eye: No discharge. Extraocular Movements: Extraocular movements intact. Conjunctiva/sclera: Conjunctivae normal. Pupils: Pupils are equal, round, and reactive to light. Funduscopic exam: Right eye: Red reflex present. Left eye: Red reflex present. Neck: Musculoskeletal: Full passive range of motion without pain, normal range of motion and neck supple.No edema or erythema. Thyroid: No thyromegaly or thyroid tenderness. Vascular: No carotid bruit or JVD. Cardiovascular: Rate and Rhythm: Normal rate and regular rhythm. Pulses: Normal pulses. Heart sounds: S1 normal and S2 normal. Pulmonary: Effort: Pulmonary effort is normal. Breath sounds: Normal breath sounds. No decreased air movement. Abdominal: General: Bowel sounds are normal. There is no distension. Palpations: Abdomen is soft. Tenderness: There is no abdominal tenderness. Musculoskeletal: Right lower leg: No edema. Left lower leg: No edema. Comments: Ambulating without difficulty. Able to sit and arise from a seated position without difficulty. Lymphadenopathy: Cervical: No cervical adenopathy. Skin: General: Skin is warm and dry. Capillary Refill: Capillary refill takes less than 2 seconds. Findings: No lesion or rash. Neurological: General: No focal deficit present. Mental Status: He is alert. Cranial Nerves: Cranial nerves are intact. Comments: C1-C12 grossly intact Psychiatric: Mood and Affect: Mood and affect normal. Behavior: Behavior normal. Assessment & Plan: Diagnoses and all orders for this visit: Erectile dysfunction, unspecified erectile dysfunction type (Primary) - sildenafiL (VIAGRA) 50 mg tablet; Take 1 tablet (50 mg total) by mouth daily as needed for erectile dysfunction Family history of cardiovascular disease - Lipid panel; Future - Comprehensive metabolic panel; Future Screening for malignant neoplasm of colon - Ambulatory referral to Gastroenterology; Future Annual physical exam Need for vaccination Assessment & Plan: He refuses vaccination this morning. Advised to notify the clinic immediately if any changes to overall health status occur or adverse reactions to any medication. Will await pending labs. Briefed on maintaining an adequate hydration status with water, engaging in aerobic activity and eating a balanced diet. Fiber and the use good fats (HDL vs. LDL) in the diet explained. Risk factor reduction discussed. The diagnosis, therapeutic plan and follow up instructions were discussed with patient. Patient acknowledges understanding theseinstructions. Doing well overall. Will continue to evaluate problems. Walter Geiger NP Cosigned by Mike Tan MD at 07/13/2019 8:24 AM CDT documented in this encounter Miscellaneous Notes * Assessment & Plan Note - Walter Geiger NP - 07/10/2019 9:51 AM CDT Associated Problem(s): Need for vaccination He refuses vaccination this morning. documented in this encounter Plan of Treatment Not on file documented as of this encounter Visit Diagnoses Diagnosis Erectile dysfunction, unspecified erectile dysfunction type- Primary Family history of cardiovascular disease Family history of other cardiovascular diseases Screening for malignant neoplasm of colon Annual physical exam Routine general medical examination at a health care facility Need for vaccination Need for prophylactic vaccination and inoculation against unspecified single disease documented in this encounter Discontinued Medications Medication Sig Discontinue Reason Start Date End Da te doxycycline (DORYX) 100 mg EC tablet Take 100 mg by mouth 2 (two) times a day. Therapy completed 07/10/2019 documented as of this encounter Care Teams It Desktop Support Technician Relationship Specialty Start Date End [place] [address] PCP - General Family Medicine 07/10/19 documented as of this encounter
--- OUTSIDE RECORDS SUMMARY | 2024-03-04 08:02 | XMS_ITS | Encounter Summary ---
Author Organization [facility] Medical Group Address [address] [facility] [facility] [address] [place] [address] Care Team Providers Care Pellet Post Inspector Name Role Phone Canelo Cuellar MD Primary Care Provi joe Reason for Visit * Reason Comments Tick Removal Encounter Details Date Type Department Care Team ([facility] Contact Info) Description 12/04/2016 8:30 AM CDT Office Visit [facility] [address] [facility] [address] [place] [address] Giuseppe Gutierrez PA [address] [facility] [address] [place] [address] Tick bite of left lower leg, initial encounter (Primary Dx) Social History Tobacco Use Types Packs/Day Years Used Date Smoking Tobacco: Former Cigarettes Q uit: 02/21/1990 Alcohol Use Standard Drinks/Week Comments Yes 0 (1 standard drink = 0.6 oz pur e alcohol) Sex and Gender Information Value Date Recorded Sex Assigned at Not on file 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 Gender Identity Not on file Sexual Orientation Not on file documented as of this encounter Last Filed Vital Signs Vital Sign Reading Time Taken Comments Blood Pressure 110/74 12/04/2016 8:49 AM CDT Pulse 72 12/04/2016 8:49 AM CDT Temperature - - Respiratory Rate 16 12/04/2016 8:49 AM CDT Oxygen Saturation - - Inhaled Oxygen Concentration - - Weight 85.7 kg (189 lb) 12/04/2016 8:49 AM CDT Height - - Body Mass Index 29.16 04/24/2016 9:11 AM BARREL RIFLER BUTTON documented in this encounter Patient Instructions * Patient Instructions* Giuseppe Gutierrez PA - 12/04/2016 8:30 AM CDT Try some hydrocortisone ointment to the area. documented in this encounter Progress Notes * Giuseppe Gutierrez PA - 12/04/2016 8:30 AM CDT Subjective/Objective Patient ID: Brad Escobar is a 51 y.o. male. Chief Complaint Tick Removal HPI Pt was in [place] visiting his daughter who is on a mission trip. He noticed a tick on his L lower leg, it was only on for about a day the most. He had pulled off himself. When he got back in town pt went to urgent care and was given Doxycycline, ten-day prescription Patient tells me that A day or two after pulling it off the lesion became pink and swollen. It is itchy and sore now although he thinks it is feeling better and healing. No f/c although up to 99 prior to today. Some nausea, Vargas. No other rash. No probs from the atb. He has 5 more days left of 10 dayprescription. Otherwise he feels well and has no complaints. Review of Systems Constitutional: Negative for chills, fatigue and fever (Perhaps low-grade slight 1 but now gone). Respiratory: Negative for cough and wheezing. Cardiovascular: Negative for chest pain and palpitations. Gastrointestinal: Positive for nausea ( slight nausea now improved). Negative for abdominal pain, diarrhea and vomiting. Musculoskeletal: Negative for arthralgias, joint swelling and myalgias. Skin: Positive for wound. Negative for rash. Vitals: 12/04/16 0849 BP: 110/74 Pulse: 72 Resp: 16 Weight: 85.7 kg (189 lb) Physical Exam Constitutional: He appears well-developed and well-nourished. No distress. Neck: No thyromegaly present. Cardiovascular: Normal rate, regular rhythm and normal heart sounds. No murmur heard. Pulmonary/Chest: Effort normal and breath sounds normal. Lymphadenopathy: He has no cervical adenopathy. Skin: No rash noted. Patient has localized black scab left anterior lower leg midway between needed ankle. There is someskin slough. There is poorly demarcated, nontender, non warm erythema extending less than 1 inch atits perimeter. No streaking. Is localized. No erythema migrans or target lesions, no other lesions elsewhere. Assessment/Plan Diagnoses and all orders for this visit: 1. Tick bite of left lower leg, initial encounter (Primary) Comments: Finish doxycycline course. No sign of infection. Topical hydrocortisone ointment for the itch and to help soften the scab. Told him what to look out for. No other systemic concerning clinical signs or symptoms noted. Side effects, risks, interactions reviewed with patient. Indications for testing discussed. Any further problems to contact us. He was told what to look out for and verbalized understanding. The patient was given the opportunity to have all questions answered today and was in agreement with the plan of care. Follow up for complete physical with PCP Cosigned by Canelo Cuellar MD at 12/06/2016 6:20 PM CDT documented in this encounter Plan of Treatment Not on file documented as of this encounter Visit Diagnoses Diagnosis Tick bite of left lower leg, initial encounter- Primary documented in this encounter Discontinued Medications Medication Sig Discontinue Reason Start Date End Da te permethrin (ELIMITE) 5 % cream apply by topical route (thoroughly massage into skin from head to soles of feet) once leave on for 8-14 hr, then remove by thorough washing 04/20/2016 12/04/2016 documented as of this encounter Historical Medications * This list may reflect changes made after this encounter. doxycycline (DORYX) 100 mg EC tablet Take 100 mg by mouth 2 (two) times a day. 07/10/2019 added in this encounter Care Teams Pellet Post Inspector Relationship Specialty Start Date End Date Canelo Cuellar MD PCP - General 05/21/16 07/09/19 documented as of this encounter
--- OUTSIDE RECORDS SUMMARY | 2024-03-04 08:02 | XMS_ITS | Encounter Summary ---
Author Organization [facility] Healthcare Address [address] [place] [address] Care Team Providers Care Piece Work Inspector Name Role Phone Canelo Cuellar MD Primary Care Provi joe Encounter Details Date Type Department Care Team (Latest Contact Info) Description 04/10/2016 9:59 AM PYRIDINE RECOVERY OPERATOR - 04/10/2016 11:59 PM PYRIDINE RECOVERY OPERATOR Hospital Encounter [facility] Canelo Cuellar MD [address] [place] [address] Discharge Disposition: Discharge to home or self care Social History Tobacco Use Types Packs/Day Years Used Date Smoking Tobacco: Former Cigarettes Q uit: 02/21/1990 Alcohol Use Standard Drinks/Week Comments Yes 0 (1 standard drink = 0.6 oz pur e alcohol) Sex and Gender Information Value Date Recorded Sex Assigned at Not on file 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
--- OUTSIDE RECORDS SUMMARY | 2024-03-04 08:02 | XMS_ITS | Continuity of Care Document ---
Author Organization [facility] Address [address] [place] [address] Phone Care Team Providers Care Regulatory Compliance Director Name Role Phone Rachele Mcclelland DO Unavailable Unavailable Allergies, Adverse Reactions, Alerts Substance Reaction Status Criticality No Known Drug Allergies Active No I nformation Medications Medication Instructions Dosage Effective Dates (start - stop) Status Comments No Drug Therapy Prescribed Problems Condition Type Effective Dates (start - stop) Clini shannan Status Comments No Known Problems Procedures Procedure Date DOT Exam DOT Exam Advance Directives Directive Yes / No Effective Date File Name No Information Encounters Encounter Description Practice Location Reason(s) For Visit Diagnoses Date Provider Providers Copied on Encounter [facility], [address], [id number], tel:[phone] No Information [address] Stas [address]. [address] [facility], [address], [id number] , [place]. tel: [phone] [facility], [address], [id number], [place] tel:[phone] [facility] Occupational Health Examination [address] Stas [address]. [address] [facility], [facility] [address], [place], [id number] , [place]. tel: [phone] [facility], [address], [id number], tel:[phone] [facility] Occupational Health Examination [address] Stas [address] [facility], [address], [place], [place], [id number] , [place]. tel:[phone] Family History Family Member Type Diagnosis Age At Onset Father Problem (finding) congenital heart diseas e Payers Payer name Insurance type Covered green party ID Authoriza tion(s) [facility] [employer] [id number] Social History Type Description Quantity Date Captured Comments Sex Male Smoking Status No Information Chief Complaint And Reason For Visit No Information Reason For Referral Reason For Referral No Information History Of Present Illness Encounter Date Complaint History Of Prese nt Illness No Information Functional Status Date Functional Assessmen t No Information Medications Administered Medication Instructions Dosage Effective Dates (start - stop) Status Comments No Drug Therapy Prescribed Instructions Date Instruction Additional Infor mation No Information Assessments Type Assessment Date No Information Patient Care Teams Name Effective Dates (start - stop) Status Members No Information
--- OUTSIDE RECORDS SUMMARY | 2024-03-04 08:02 | XMS_ITS | Clinical Summary ---
Author Organization [facility] Address [address] [place] [phone] Care Team Providers Care Oceanography Professor Name Role Phone Mike Tan MD Primary Care Provider [phone] Allergies No known active allergies Medications No known medications Active Problems Problem Noted Date Diagnosed Date Erectile dysfunction 07/10/2019 Family history of cardiovascular disease 020 Annual physical exam 07/10/2019 Need for vaccination 07/10/2019 Assessment & Plan (07/10/2019 9:51 AM CDT): He refuses vaccination this morning. BMI 29.0-29.9,adult 12/04/2016 Immunizations Name Administration Dates Next Due Influenza, Unspecified 07/10/2019(Deferr ed: Patient Refused),02/21/2019(Deferred: Patient Refused),02/21/2018(Deferred: Patient Refused) Tdap 07/10/2019(Deferred: Patient Ref used) Surgical History Surgery Date Site/Laterality Comments CYST REMOVAL Right Medical History Medical History Date Comments No pertinent past medical history Family History Medical History Relation Name Comments Heart disease Father Other Mother Relation Name Status Comments Father (Age 58) Mother (Age 72) Social History Tobacco Use Types Packs/Day Years Used Date Smoking Tobacco: Former Smokeless Tobacco: Never Alcohol Use Standard Drinks/Week Comments Yes 0 (1 standard drink = 0.6 oz pur e alcohol) PHQ-2 Answer Date Recorded PHQ-2 Total Score (If total score is 3 or more points, staff should administer the PHQ-9) 0 07/10/2019 Personal Safety Answer Date Recorded Getting School Help Needed Not on file 05/06 Sex and Gender Information Value Date Recorded Sex Assigned at Not on file Legal Sex Male 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 PRINCIPAL PROGRAMMER Gender Identity Not on file Sexual Orientation Not on file Obstetrics History Last Filed Vital Signs Vital Sign Reading Time Taken Comments Blood Pressure 154/90 01/04/2021 11:40 AM PRINCIPAL PROGRAMMER Pulse 90 01/04/2021 11:40 AM PRINCIPAL PROGRAMMER Temperature 37 ??C (98.6 ??F) 01/04/2021 11:40 AM PRINCIPAL PROGRAMMER Respiratory Rate 20 01/04/2021 11:40 AM PRINCIPAL PROGRAMMER Oxygen Saturation 96% 01/04/2021 11:40 AM PRINCIPAL PROGRAMMER Inhaled Oxygen Concentration - - Weight 90.3 kg (199 lb) 01/04/2021 11:40 AM PRINCIPAL PROGRAMMER Height 172.7 cm (5' 8 ) 01/04/2021 11:40 AM PRINCIPAL PROGRAMMER Body Mass Index 30.26 01/04/2021 11:40 AM PRINCIPAL PROGRAMMER Plan of Treatment Not on file Insurance [employer] [facility] Care Teams Oceanography Professor Relationship Specialty Start Date End Date Mike Tan MD [address] [place] [address] PCP - General Family Medicine 07/10/19
--- OUTSIDE RECORDS SUMMARY | 2024-03-04 08:02 | XMS_ITS | Referral Summary ---
Author Organization [facility] Address [address] [place] [id number] Care Team Providers Care Postal Transportation Clerk Name Role Phone Mike Tan MD Primary Care Provider [phone] Allergies No known active allergies Medications No [...] Patient Refused) Tdap 07/10/2019(Deferred: Patient Ref used) Social History Tobacco Use Types Packs/Day Years [...] on file Legal Sex Male 1:08 AM SERVICE AGENT Gender Identity Not on file Sexual Orientation Not on file Last Filed Vital Signs Vital Sign Reading Time Taken Comments Blood Pressure 154/90 01/04/2021 11:40 AM SERVICE AGENT Pulse 90 01/04/2021 11:40 AM SERVICE AGENT Temperature 37 ??C (98.6 ??F) 01/04/2021 11:40 AM SERVICE AGENT Respiratory Rate 20 01/04/2021 11:40 AM SERVICE AGENT Oxygen Saturation 96% 01/04/2021 11:40 AM SERVICE AGENT Inhaled Oxygen Concentration - - Weight 90.3 kg (199 lb) 01/04/2021 11:40 AM SERVICE AGENT Height 172.7 cm (5' 8 ) 01/04/2021 11:40 AM SERVICE AGENT Body Mass Index 30.26 01/04/2021 11:40 AM SERVICE AGENT Plan of Treatment Not on file Insurance [employer] [facility] Care Teams Postal Transportation Clerk Relationship Specialty Start Date End [place] [address] PCP - General Family Medicine 07/10/19
== END 2024-02-26 17:51 | disposition home or self-care (01) ==
PROVIDERS: Emergency Provider Nurse Practitioner
DX: H66.92 Otitis media, unspecified, left ear (principal)
CPT/HCPCS: 99213; G0463